=== PATIENT | female | born 1955 | race Caucasian/White ===

== ENCOUNTER 2017-10-17 18:26 | Emergency (ER) | payer BC, OTHER ==
--- NOTE | 2017-10-17 19:59 | RAD ---
Right knee three view on 10/17/2017 CLINICAL INDICATION: Right knee pain after fall COMPARISON: None FINDINGS: There is joint space narrowing in the medial and patellofemoral compartments with small osteophyte formation consistent with changes of osteoarthritis. There is a probable small suprapatellar joint effusion. There are no fractures. Visualized joints are well aligned. No other bony abnormality is noted. IMPRESSION: 1. Mild changes of osteoarthritis with no acute bony abnormality. 2. Joint effusion, if clinically indicated follow up MRI could better evaluate for internal derangement of the joint. Electronically signed by: Sandro Gomes 10/17/2017 7:58 PM [facility]
--- NOTE | 2017-10-17 20:38 | ED.PDOC ---
History of Present Illness - General Chief Complaint: Lower Extremity Injury Stated Complaint: Right knee pain post fall Time Seen by Provider: 10/17/17 20:38 Source: patient Exam Limitations: no limitations - History of Present Illness Initial Comments: Nelida Lynch 62 y/o female came to ER after slipping and falling on her right knee at a friends house on a wet stairstep landed on her right knee.Has pain on weight bearing of her right knee after the incident.Denies any other injuries. Occurred: this evening Pain - Lower Extremity: moderate: Right Knee Method of Injury: fell Improving Factors: rest Worsening Factors: movement Allergies/Adverse Reactions: Allergies NO KNOWN ALLERGY Allergy (Verified 10/17/17 19:27) Review of Systems - Review of Systems Constitutional: States: no symptoms reported EENTM: States: no symptoms reported Respiratory: States: no symptoms reported Cardiology: States: no symptoms reported Gastrointestinal/Abdominal: States: no symptoms reported Musculoskeletal: States: see HPI Neurological: States: no symptoms reported Past Medical History (General) - Patient Medical History Hx Hypertension: Yes Hx Diabetes: Yes Hx Cancer: No Hx Hepatitis C: No Surgical History: other - bunionectomy - Vaccination History Hx Tetanus, Diphtheria Vaccination: Yes Hx Influenza Vaccination: Yes Hx Pneumococcal Vaccination: No - Social History Hx Alcohol Use: Yes - 12yrs ago - Female History Patient : No Family Medical History - Family History Brother Hx Family Hypertension: Yes - multiple family members Hx Family Diabetes: Yes - multiple family members Hx Family Cancer: Yes - ovarian-sister;kidney-brother;lung-brother Hx Family;Other: liver cirrhosis Physical Exam - Physical Exam General Appearance: Alert, Comfortable Eyes, Ears, Nose, Throat: normal ENT inspection Neck: non-tender, full range of motion, supple Cardiovascular/Respiratory: regular rate, rhythm, no M/R/G, normal peripheral pulses Gastrointestinal/Abdominal: non-tender, no organomegaly Back: no CVA tenderness, no vertebral tenderness Thigh/Hip: non-tender, no evidence of injury Leg: no evidence of injury Knee: bone tenderness - right knee, limited ROM - right knee, soft tissue tenderness - right knee, other - no instability Ankle: non-tender, no evidence of injury Foot: non-tender, no evidence of injury Neuro/Tendon: normal sensation, normal motor functions, normal tendon functions , responds to pain, no evidence tendon injury Mental Status: alert, oriented x 3 Skin: normal color, warm/dry Departure - Departure Clinical Impression: Knee pain, right anterior Fall Qualifiers: Encounter type: initial encounter Qualified Code(s): W19.XXXA - Unspecified fall, initial encounter Contusion of knee, right Qualifiers: Encounter type: initial encounter Qualified Code(s): S80.01XA - Contusion of right knee, initial encounter Time of Disposition: 20:57 Disposition: Discharge to Home or Self Care Condition: Good Departure Forms: ED Discharge - Pt. Copy, Patient Portal Self Enrollment Instructions: DI for Contusion Referrals: Nick Ballard MD [Primary Care Provider] - 1-2 Weeks Additional Instructions: May use icy hot apply 3 x a day for 10-14 days.Ice pack to affected area 15 minutes 3 x a day during waking hours only for 3-5 days as needed;follow up with primary Md 10/22 as needed
[2017-10-17] MEDS ORDERED: HYDROCOD/APAP 10/325 (ER DISP) # 3 tablets PO ONE (21:00)
[2017-10-17 21:50] VITALS: BP 140/87; TEMP 98.1; O2SAT 96
== END 2017-10-17 21:45 | disposition home or self-care (01) ==
LOC: ER 18:26
DX: S80.01XA Contusion of right knee, initial encounter (principal); I10 Essential (primary) hypertension; E11.9 Type 2 diabetes mellitus without complications; W10.8XXA Fall (on) (from) other stairs and steps, initial encounter; Y92.89 Other specified places as the place of occurrence of the external cause